=== PATIENT | male | born 1935 | race Caucasian/White ===

== ENCOUNTER 2016-07-29 10:04 | Day surgery (SDC) | payer MEDICARE, OTHER ==
[~2016-07-29] VITALS: Ht 180.3 cm; Wt 87.5 kg
[~2016-07-29 10:04] MED LIST: ASCO-294 PO; ASPI-973 PO; ASPI325T32 PO; CALC-3 PO; CRES20T PO; DUTA0.5C2 PO; LISI40TA PO; MULT-1073 PO; Sodium Chloride LOK Flush 10 mL Syringe IV PRN; TAMS0.4C98 PO; VITA400C64 PO; fentaNYL-PF 50 mCg/mL 2 mL Inj IVPUSH PRN
[2016-07-29 10:19] VITALS: BP 154/75; PULSE 51; RESP 18; O2SAT 95
[2016-07-29] MEDS ORDERED: PYR50 PO (10:30)
[2016-07-29] MEDS ORDERED: CYAN100T PO (10:30)
[2016-07-29] MEDS ORDERED: 0.9% Sodium Chloride 1,000 ML IV ONE (10:39)
[2016-07-29 11:23] VITALS: BP 138/66; PULSE 48; RESP 14; O2SAT 95
[2016-07-29 11:37] VITALS: BP 143/69; PULSE 56; RESP 14; O2SAT 96
--- NOTE | 2016-07-29 15:21 | ENDO ---
[address] [address] ENDOSCOPY PROCEDURE PATIENT: ROSS OLIVAS : 1935 MR#: [id number] ADMIT: 07/29/2016 JOB ID: [id number] DATE: 07/29/2016 TYPE OF OPERATION: Colonoscopy with hot snare polypectomy and biopsy. PREOPERATIVE DIAGNOSIS(ES): History of colon polyps. POSTOPERATIVE DIAGNOSIS(ES): 1. Small internal hemorrhoids. 2. A 5 mm sigmoid polyp, removed by hot snare polypectomy. 3. A 2 mm ascending colon polyp, removed by cold biopsy forceps. ANESTHESIA: 1. Fentanyl 75 mcg. 2. Versed 3 mg IV administered. COMPLICATIONS: None. BLOOD LOSS: Minimal. DESCRIPTION OF PROCEDURE: After risks and benefits were explained to the patient, informed consent was obtained. After anesthesia administered, colonoscope was then inserted per rectum to the cecum. Mucosa carefully examined. Prep of the patient was excellent. After the procedure was done, the scope was withdrawn and procedure terminated. FINDINGS: Upon inspection of the anus, no masses, hemorrhoids, ulcers or fissures that were seen. Throughout the entire examination, there is a 5 mm sigmoid polyp removed by hot snare polypectomy. A 2 mm ascending colon polyp removed by cold biopsy forceps. Retroflexion showed small internal hemorrhoids. IMPRESSION: 1. Small internal hemorrhoids. 2. A 5 mm sigmoid polyp removed by hot snare polypectomy. 3. A 2 mm ascending colon polyp removed by cold biopsy forceps. RECOMMENDATION: 1. Await pathology results. 2. Repeat colonoscopy in five years for a given history of colon polyps.
--- NOTE | 2016-08-02 14:52 | PATH ---
SURGICAL PATHOLOGY Attending Physician:Bryan Moscoso MD CASE STATUS: Signed Out PATIENT NAME: ROSS OLIVAS PID: [id number] : 1935 DATE COLLECTED:07/29/2016 22:04 SPECIMEN: 1: Colon, Biopsy 2: Colon, Biopsy CLINICAL HISTORY: 1). SIGMOID POLYP X1 2). ASCENDING POLYP FINAL DIAGNOSIS: 1. Sigmoid Polyp, Biopsy: Tubular adenoma; negative for high-grade dysplasia. 2. Ascending Polyp, Biopsy: Tubular adenoma; negative for high-grade dysplasia. ICD10: K63.5 GROSS DESCRIPTION: Received are two formalin-filled containers, both labeled with the patient' s name: 1. Received in formalin, labeled with the patient' s name and "sigmoid polyp", is one fragment of parsons, soft tissue measuring 0.3 x 0.2 x 0.1 cm. The fragment is totally submitted in cassette 1A. 2. Received in formalin, labeled with the patient' s name and "ascending polyp", is one fragment of parsons, soft tissue measuring 0.1 x 0.1 x 0.1 cm. The fragment is totally submitted in cassette 2A. ([id number]) ICD-9 CODES: CPT CODES: 1: 12493 2: 34644 Electronically Signed Out Karely Johnson MD [facility], [place] [address] Technical component performed at [facility], [address] [place] [address] Ave[address], [place], [address]
== END 2016-07-29 23:59 | disposition home or self-care (01) ==
LOC: END 10:04
PROVIDERS: ATTEND Internal Medicine Gastroenterology
DX: Z12.11 Encounter for screening for malignant neoplasm of colon (principal); D12.5 Benign neoplasm of sigmoid colon; D12.2 Benign neoplasm of ascending colon; Z86.010 Personal history of colon polyps; J43.9 Emphysema, unspecified; E78.5 Hyperlipidemia, unspecified; N40.1 Benign prostatic hyperplasia with lower urinary tract symptoms; K64.8 Other hemorrhoids
CPT/HCPCS: 45380; 45385; G0500; J7030